=== PATIENT | female | born 1950 | race Caucasian/White ===

== ENCOUNTER 2022-01-10 00:39 | Emergency (ER) | payer MEDICARE ==
[~2022-01-10] VITALS: Ht 157.5 cm; Wt 78.9 kg
[2022-01-10] MEDS ORDERED: ONDANSETRON HCL INJ 2MG/ML 2ML 2 MG/ML VIAL IV STA (01:02)
[2022-01-10] MEDS ORDERED: HEPARIN 500 UNITS/5ML MDV INJ ONE (01:15)
[2022-01-10] MEDS ORDERED: Morphine 4mg INJECTION 4 MG/ML INJ IV ONE (01:15)
[2022-01-10] MEDS ORDERED: SODIUM CHLORIDE FLUSH 10 ML SYR IV PRN (01:15)
[2022-01-10] MEDS ORDERED: ASPIRIN 81 MG CHEW TAB PO ONE (01:15)
[2022-01-10] MEDS ORDERED: ONDANSETRON HCL INJ 2MG/ML 2ML 2 MG/ML VIAL ONE (01:18)
[2022-01-10 01:20] LABS: BASOPHILS % 0.3 % (0.0-1.0); EOSINOPHILS % 0.2 % (0.0-6.0); HEMATOCRIT 45.6 % (34.2-44.1); HEMOGLOBIN 15.4 g/dL (12.0-16.0); LYMPHOCYTES # (AUTO) 1.3 (1.0-3.2); MEAN CORPUSCULAR HGB CONC 33.8 g/dL (31-35); MEAN CORPUSCULAR VOLUME 94.8 fL (81-99); MONOCYTES # (AUTO) 0.6 (0.2-0.8); MONOCYTES % 6.4 % (4.4-11.3); NEUTROPHILS # (AUTO) 7.7 (2.1-6.9); NEUTROPHILS % 79.8 % (38.7-80.0); PLATELET COUNT 282 x10e3/uL (140-360); RED BLOOD COUNT 4.81 x10e6/uL (3.6-5.1); RED CELL DISTRIBUTION WIDTH 11.1 % (11.7-14.4)
[2022-01-10] MEDS ORDERED: HEPARIN SOD (PORCINE) 5,000 UNIT/ML VIAL ONE (01:32)
[2022-01-10 01:36] LABS: ALBUMIN 4.1 g/dL (3.5-5.0); ALBUMIN/GLOBULIN RATIO 1.1 (0.8-2.0); ANION GAP 16.7 mmol/L (8-16); CALCIUM 10.3 mg/dL (8.4-10.2); CREATININE, SERUM 0.92 mg/dL (0.57-1.11); POTASSIUM 3.7 mmol/L (3.5-5.1)
== END 2022-01-10 01:47 | disposition other institution (70) ==
LOC: ER 00:45
DX: I21.3 ST elevation (STEMI) myocardial infarction of unspecified site (principal); E78.5 Hyperlipidemia, unspecified; I69.354 Hemiplegia and hemiparesis following cerebral infarction affecting left non-dominant side; Z88.5 Allergy status to narcotic agent
CPT/HCPCS: 36415; 71045; 80053; 80320; 83880; 84484; 85025; 93005; 99284; J1644; J2270; J2405